=== PATIENT | female | born 1945 | race African-American/Black ===

== ENCOUNTER 2021-04-10 11:41 | Outpatient (CLI) | payer MEDICARE, OTHER, SELFPAY ==
--- NOTE | ~2021-04-10 | XR_ITS ---
EXAMINATION: XR sacroiliac joints min 3V INDICATION: Polyosteoarthritis, unspecified TECHNIQUE: Three views of the sacroiliac joints are obtained. COMPARISON: None available FINDINGS: Bone alignment is normal. There is no fracture. There is no abnormal sclerosis or erosion o f the sacroiliac joints. Lumbar spondylosis is noted. There is mild osteoarthritis of the hips. IMPRESSION: 1. Unremarkable sacroiliac joints. Reviewed, dictated and finalized at location B.
--- NOTE | ~2021-04-10 | XR_ITS ---
EXAMINATION: XR foot LT standing 2V INDICATION: Polyosteoarthritis, unspecified TECHNIQUE: Two views of the left foot are obtained. COMPARISON: None available FINDINGS: Hallux valgus is noted. There is mild osteoarthritis of the first metatarsophalangeal joint and multiple interphalangeal joints. There is no fracture. The soft tissues are unremarkable. IMPRESSION: 1. Mild osteoarthritis. Reviewed, dictated and finalized at location B. IMPRESSION: 1. Mild osteoarthritis.
--- NOTE | ~2021-04-10 | XR_ITS ---
EXAMINATION: XR hand BI arthritis min 3V DATE: 04/10/2021 12:27 INDICATION: Unspecified osteoarthritis TECHNIQUE: Posteroanterior, lateral, and oblique views of the left and of the right hands as well as a ballcatchers view of both hands were obtained. COMPARISON: None. FINDINGS: Left hand: There is moderate osteoarthritis of the triscaphe and first carpometacarpal joints. There is mild widening of the scapholunate interval. Mild osteoarthritis is noted in multiple interphalange al joints. There is no fracture. The soft tissues are normal. Right hand: There are changes of prior wrist fracture with fusion of the radius to the carpals. Only the trapezium and trapezoid are identified as distinct carpal bones. There is mild osteoarthritis at the first carpometacarpal joint. Lucencies in the distal radius are present at the sites of prior ort hopedic hardware. There is mild osteoarthritis of multiple interphalangeal joints. The soft tissues a re unremarkable. IMPRESSION: 1. Mild to moderate polyarticular osteoarthritis. Reviewed, dictated and finalized at location B.
--- NOTE | ~2021-04-10 | XR_ITS ---
EXAMINATION: XR foot RT standing 2V INDICATION: Polyosteoarthritis, unspecified TECHNIQUE: Two views of the right foot are obtained. COMPARISON: None available FINDINGS: Hallux valgus is noted. There is mild osteoarthritis of the first metatarsophalangeal joint and multiple interphalangeal joints. There is no fracture. The soft tissues are unremarkable. IMPRESSION: 1. Mild osteoarthritis. Reviewed, dictated and finalized at location B. IMPRESSION: 1. Mild osteoarthritis.
[2021-04-10 13:08] LABS: Hematocrit 41.5 % (37.0-47.0); Hemoglobin 13.7 g/dL (12.0-15.0); Mean Platelet Volume 9.3 fl (7.4-10.4); Platelet Count Result 211 k/mm3 (150-375); Red Blood Count 4.28 M/mm3 (4.2-5.4); Red Cell Distribution Width 13.2 % (11.5-14.5); White Blood Count 4.9 K/mm3 (4.5-10.0)
[2021-04-10 13:39] LABS: Alanine Aminotransferase 17 U/L (4-35); Albumin Level 4.6 g/dL (3.5-5.1); Alkaline Phosphatase 94 U/L (38-126); Anion Gap 8 mmol/L (8-16); Aspartate Amino Transferase 26 U/L (14-36); Bilirubin,Total 0.8 mg/dL (0.2-1.3); Blood Urea Nitrogen 13 mg/dL (7-17); CRP < 0.5 mg/dL (<1.0); Calcium 11.8 mg/dL (8.4-10.2); Carbon Dioxide 26 mmol/L (22-30); Chloride 105 mmol/L (98-107); Estimated Glomerular Filt Rate > 60; Glucose 87 mg/dL (65-110); Potassium 3.8 mmol/L (3.4-5.0); Sodium 139 mmol/L (137-145)
[2021-04-10 13:42] LABS: Complement C3 118 mg/dL (88-165)
[2021-04-10 14:14] LABS: Rheumatoid Factor < 8.6 IU/ML (<12)
[2021-04-10 14:22] LABS: Erythrocyte Sedimentation Rate 15 mm/hr (0-20)
[2021-04-13 08:37] LABS: SM Antibody <1.0; SM/RNP Antibody <1.0; SS-A <1.0; SS-B <1.0
[2021-04-13 22:46] LABS: Anti Cyclic Citrullinated Pept <16 Units (<20)
== END 2021-04-10 11:42 | disposition home or self-care (01) ==
LOC: ANHIMG 11:56
PROVIDERS: Visit Provider Internal Medicine
DX: M15.9 Polyosteoarthritis, unspecified (principal); R76.8 Other specified abnormal immunological findings in serum; M06.9 Rheumatoid arthritis, unspecified
CPT/HCPCS: 36415; 72202; 73130; 73620; 80053; 85027; 85652; 86140; 86160; 86200; 86225; 86235; 86430